=== PATIENT | female | born 1980 | race Two or more races ===

== ENCOUNTER 2021-01-03 15:24 | Emergency (ER) | payer OTHER ==
[~2021-01-03] VITALS: Ht 162.6 cm; Wt 74.8 kg
[2021-01-03] MEDS ORDERED: PEPCID20 MG PO (19:31)
[2021-01-03] MEDS ORDERED: NAPROXEN500 MG PO (19:31)
[2021-01-03] MEDS ORDERED: SKELAXIN800 MG PO (19:31)
== END 2021-01-03 19:21 | disposition home or self-care (01) ==
LOC: ER 15:24
DX: S30.0XXA Contusion of lower back and pelvis, initial encounter (principal); S80.02XA Contusion of left knee, initial encounter; S60.212A Contusion of left wrist, initial encounter; S50.02XA Contusion of left elbow, initial encounter; W18.39XA Other fall on same level, initial encounter; Y93.89 Activity, other specified; Y92.89 Other specified places as the place of occurrence of the external cause; Y99.8 Other external cause status

== ENCOUNTER 2022-10-15 05:45 | Day surgery (SDC) | payer OTHER ==
[~2022-10-15] VITALS: Ht 162.6 cm; Wt 72.6 kg
[~2022-10-15 05:45] MED LIST: ADVIL100 M1 PO; MULTIPLE VITAM1 EAC2 PO; NAPROXEN500 MG PO; PEPCID20 MG PO; SKELAXIN800 MG PO
== END 2022-10-15 18:30 | disposition home or self-care (01) ==
LOC: CIR.AMB 05:45
PROVIDERS: ATTEND Obstetrics & Gynecology Maternal & Fetal Medicine
DX: N84.0 Polyp of corpus uteri (principal); F12.90 Cannabis use, unspecified, uncomplicated; Z20.822 Contact with and (suspected) exposure to COVID-19

== ENCOUNTER 2025-01-18 14:24 | Emergency (ER) | payer OTHER ==
[~2025-01-18] VITALS: Ht 162.6 cm; Wt 56.7 kg
[2025-01-18 15:09] VITALS: BP 119/70; O2SAT 99
[2025-01-18] MEDS ORDERED: ONZETRA XSAIL11 MG (15:09)
[2025-01-18] MEDS ORDERED: METOCLOPRAMIDE HCL 5 MG/ML VIAL IM STA (18:01)
[2025-01-18] MEDS ORDERED: HALOPERIDOL LACTATE 5 MG/ML AMPUL IM STA (18:02)
[2025-01-18] MEDS ORDERED: DIPHENHYDRAMINE HCL 25 MG CAPSULE PO STA (18:03)
[2025-01-18] MEDS ORDERED: HALOPERIDOL LACTATE 5 MG/ML AMPUL ONE (18:08)
[2025-01-18] MEDS ORDERED: METOCLOPRAMIDE HCL 5 MG/ML VIAL ONE (18:09)
== END 2025-01-18 18:29 | disposition home or self-care (01) ==
LOC: ER 14:26
DX: G43.809 Other migraine, not intractable, without status migrainosus (principal)